=== PATIENT | male | born 1990 | race Caucasian/White ===

== ENCOUNTER 2018-06-21 04:40 | Emergency (ER) | payer OTHER ==
[2018-06-21] MEDS ORDERED: NS 1,000 ML IV ONE ×2 (04:51→05:05)
--- NOTE | 2018-06-21 04:56 | EDPHY ---
H & P Stated Complaint: c/o chest pressure since 0 radiating to back Time Seen by Provider: 06/21/18 04:54 HPI/ROS: 28-year-old male presents complaining of chest pain/pressure that radiates to his back and bilateral shoulders and an "accelerated heart rate" that began last night prior to going to sleep and then bothered him enough to wake him up early this morning. States he has had sinus congestion and cough for several weeks. He denies fevers or chills. He states his cough has been productive of a yellow "gunk". Denies drug use, excessive caffeine, amphetamines. States he did use marijuana yesterday. Review of systems As per HPI-sinus congestion General no fever no chills no weakness HEENT no eye pain no eye discharge. No eye redness, no sore throat Respiratory positive cough, no shortness of breath Cardiac positive chest pain, no peripheral edema, positive palpitations GI no abdominal pain, no diarrhea, no constipation, no nausea, no vomiting no flank pain, no hematuria, no dysuria Musculoskeletal no myalgias, no joint pain Heme no easy bruising, no easy bleeding Endo no polyuria, no polydipsia Skin no rashes, no pruritus Neuro no syncope, no dizziness, no headaches Psych is no suicidal ideation, no homicidal ideation Source: Patient Exam Limitations: No limitations - Personal History Current Tetanus/Diphtheria Vaccine: No Current Tetanus Diphtheria and Acellular Pertussis (TDAP): No - Medical/Surgical History Hx Asthma: No Hx Chronic Respiratory Disease: No Hx Diabetes: No Hx Cardiac Disease: No Hx Renal Disease: No Hx Cirrhosis: No Hx Alcoholism: No Hx HIV/AIDS: No Hx Splenectomy or Spleen Trauma: No - Family History Significant Family History: No pertinent family hx - Social History Smoking Status: Current some day smoker Alcohol Use: Occasionally Drug Use: Marijuana - Physical Exam Exam: 28-year-old male alert and oriented no acute distress nontoxic appearance, afebrile No respiratory distress, appears healthy, talkative HEENT atraumatic normocephalic, extraocular muscles intact, anicteric Oropharynx negative for erythema negative exudate, tolerating her own secretions Neck supple no meningismus Lungs clear to auscultation bilaterally, diminished at left base Heart rapid rate and rhythm without murmur rub or gallop Abdomen nondistended normoactive bowel sounds soft nontender Back no CVA tenderness, no step-offs, no spinal tenderness Extremities no cyanosis clubbing or edema Neuro alert and oriented, no focal deficits Constitutional: Initial Vital Signs Temperature (C) 36.8 C 06/21/18 04:42 Heart Rate 114 H 06/21/18 04:42 Respiratory Rate 15 06/21/18 04:42 Blood Pressure 169/101 H 06/21/18 04:42 O2 Sat (%) 98 06/21/18 04:42 O2 Delivery Mode Room Air Allergies/Adverse Reactions: No Known Allergies Allergy (Verified 12/08/13 10:37) Home Medications: Medication Instructions Recorded NO HOME MEDS 11/29/13 Azithromycin [Zithromax] 250 mg PO DAILY #6 tab 06/21/18 Medical Decision Making - Diagnostics EKG Interpretation: Sinus tachycardia, rate 116 ED Course/Re-evaluation: Patient seen and evaluated for chest pressure, productive cough, accelerated heart rate. IV established, labs drawn Patient given 1 L normal saline EKG sinus tachycardia rate 116 Chest x-ray-no pleural effusion, no infiltrate, consistent with bronchitis CBC WBC elevated to 12, H&H normal BMP normal Troponin 0 D-dimer less than 100 Heart rate markedly improved fluids. Impression Bronchitis Likely mild dehydration Sinus tachycardia Plan Discharge home [facility] Follow-up PCP Rest, drink plenty of liquids Acetaminophen or ibuprofen as needed for pain Differential Diagnosis: Differential diagnosis considered but not limited to: Pneumonia, bronchitis, pulmonary embolus, myocardial infarction, arrhythmia, pericarditis, thoracic aortic dissection - Data Points Laboratory Results: 06/21/18 06/21/18 05:14 05:08 POC Sodium 144 mEq/L mEq/L (135-145) POC Potassium 3.5 mEq/L mEq/L (3.3-5.0) POC Chloride 109.0 mEq/L mEq/L (97-110) POC Total CO2 28 mEq/L mEq/L (22-31) POC BUN 13 mg/dL mg/dL (7-23) POC Creatinine 0.9 mg/dL mg/dL (0.7-1.3) POC Glucose 100 mg/dL mg/dL (70-100) POC Calcium 10.2 mg/dL mg/dL (8.5-10.4) POC Troponin I 0.00 ng/mL ng/mL (0.00-0.08) Medications Given: Discontinued Medications Sodium Chloride (Ns) 1,000 mls @ 0 mls/hr IV ONCE ONE; Wide Open PRN Reason: Protocol Stop: 06/21/18 04:52 Last Admin: 06/21/18 05:05 Dose: 1,000 mls Sodium Chloride (Ns) 1,000 mls @ 0 mls/hr IV ONCE ONE PRN Reason: Wide Open Stop: 06/21/18 05:06 Last Admin: 06/21/18 05:38 Dose: Not Given Point of Care Test Results: CBC CBC Collection Date 06/21/18 CBC Collection Time 04:55 WBC 12.5 RBC 6.00 HGB 17.8 HCT 51.6 PLT 200 Neut # 9.6 Neut 76.7 LYMPH # 1.7 LYMPH 13.8 Other WBC # 1.2 Other WBC 9.5 MCV 86.0 Chemistry 06/21/18 06/21/18 05:14 05:08 POC Sodium 144 mEq/L mEq/L (135-145) POC Potassium 3.5 mEq/L mEq/L (3.3-5.0) POC Chloride 109.0 mEq/L mEq/L (97-110) POC Total CO2 28 mEq/L mEq/L (22-31) POC BUN 13 mg/dL mg/dL (7-23) POC Creatinine 0.9 mg/dL mg/dL (0.7-1.3) POC Glucose 100 mg/dL mg/dL (70-100) POC Calcium 10.2 mg/dL mg/dL (8.5-10.4) POC Troponin I 0.00 ng/mL ng/mL (0.00-0.08) D-Dimer D-Dimer Collection Date 06/21/18 D-Dimer Collection Time 04:55 D-Dimer (ng/ml) <100 Departure - Departure Disposition: Home, Routine, Self-Care Clinical Impression: Bronchitis, Sinus tachycardia by electrocardiogram Condition: Good Instructions: Costochondritis (ED), Acute Bronchitis (ED), Noncardiac Chest Pain (ED) Additional Instructions: drink plenty of fluids, rest, take ibuprofen or acetaminophen for pain Referrals: Patient,NotPresent [Primary Care Provider] - As per Instructions [facility] [Provider Group] - As per Instructions Prescriptions: Azithromycin [Zithromax] 250 mg PO DAILY #6 tab
--- NOTE | 2018-06-21 05:26 | CPEKG ---
Test Reason : OPEN Blood Pressure : / mmHG Vent. Rate : 116 BPM Atrial Rate : 115 BPM P-R Int : 189 ms QRS Dur : 096 ms QT Int : 311 ms P-R-T Axes : 045 023 035 degrees QTc Int : 433 ms Sinus tachycardia Confirmed by Christiana Good ([id number] on 06/21/2018 5:26:04 AM Referred By: Confirmed By:Christiana Good
[2018-06-21 05:37] VITALS: BP 126/79
== END 2018-06-21 06:00 | disposition home or self-care (01) ==
LOC: CED 04:40
DX: J90 Pleural effusion, not elsewhere classified (principal); R00.0 Tachycardia, unspecified; F17.200 Nicotine dependence, unspecified, uncomplicated
CPT/HCPCS: 71046-PO; 80048-PO; 84484-PO